=== PATIENT | female | born 1930 | race Caucasian/White ===

== ENCOUNTER → 2016-12-30 | Outpatient (CLI) | payer OTHER ==
--- NOTE | 2016-12-30 14:11 | KCIC ---
LUMBAR SPINE 2-3V History: Chronic low back pain without sciatica Comparison: None. Findings: 3 views lumbar spine are submitted. There is moderate to severe lumbar levoscoliosis. Lumbar vertebral body stature is overall maintained. There is mild left lateral subluxation of L3 relative L4 and L4 relative L5 and mild right lateral subluxation L1 relative to L2. There is multilevel variable advanced degenerative disc disease greatest at site of anticipated increased axial weightbearing due to scoliosis. There is scattered atherosclerotic calcification of the abdominal aorta. There is multilevel lumbar facet degenerative change greater inferiorly of the lumbar spine. There is bone demineralization. Impression: 1. There is moderate to severe lumbar levoscoliosis. There is multilevel degenerative disc disease and spondylosis, mild abnormal lateral alignment as stated. There is multilevel lumbar facet degenerative change. Electronically signed by: Kelechi Boyle MD (12/30/2016 2:08 PM) [facility]
== END | disposition home or self-care (01) ==
LOC: KCIC 13:39
PROVIDERS: ATTEND Internal Medicine
DX: G89.29 Other chronic pain (principal); M51.36 Other intervertebral disc degeneration, lumbar region
CPT/HCPCS: 72100

== ENCOUNTER → 2017-01-16 | Outpatient (CLI) | payer OTHER ==
[~2017-01-16] MED LIST: PRIM250T PO; SIMV40TA3 PO; VIT1TABL32 PO
--- NOTE | 2017-01-17 00:10 | PAIN ---
DATE OF SERVICE: 01/16/2017 INITIAL CONSULTATION FOR PAIN CLINIC CHIEF COMPLAINT: Low back and bilateral lower extremity pain. HISTORY OF PRESENT ILLNESS: This is an 86-year-old female with history of pain in the low back and bilateral lower extremities, mostly in the posterior gluteus, posterolateral thigh, lateral anterior thigh and medial lower legs as well as the posterior lower legs, for about 10 years. The patient reports this is gradually getting worse, but it comes and goes, is not persistent and radiates into the legs. It is usually when she is walking or standing. 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 The patient reports that the pain becomes much worse with standing, even more than about 15-20 minutes ____ about 10 minutes where she needs to sit down, which the pain tends to subside after several minutes. When she sits for about 10 minutes or so, the pain is better. She gets up and walks, and it all starts to go over again. The patient reports it is hurting and aching with some radiating pain in her lower extremities as described in the L4 and L5 dermatomal pattern into the lateral anterior thighs, medial thighs, posterior gluteus, posterior lower legs and medial lower legs as well, again worse in the low back but with radiating pain intermittently. The patient reports it does not awaken her from sleep at night. She feels much better with sitting or lying down. She is not having bowel or bladder control issues from the pain, but it does affect her ability to walk significantly. Again, after about 10-15 minutes of walking or standing, the pain becomes unbearable and radiating. The patient did have lumbar spine films showing [id number] lumbar levoscoliosis with lumbar vertebral body, mild left lateral subluxation of L3 relative to L4 and L4 relative to L5, mild right lateral subluxation at L1 relative to L2, multilevel advanced degenerative disk disease, greatest at the site of increased axial weightbearing due to scoliosis. There is scattered atherosclerotic calcification of the abdominal aorta as well as multilevel lumbar facet degenerative change, greater inferiorly also. The patient reports disability rating from 0 to 10, 10 being the worst, is at 1 with family and home responsibilities and at 0 with recreation, social activity, occupation, self-care and life support activities as she reports she "just gets by" with the pain. The patient has not had any further treatments such as physical therapy. She is doing some exercise on her own, stretching every day about twice a day, usually in the morning and evenings but no chiropractic treatment and no formal therapies otherwise. PAST MEDICAL HISTORY: Significant for hearing loss with hearing aids, cataracts, eye glasses and macular degeneration. The patient is a previous cigarette smoker, quit many years ago and has history of arthritis and seizure, last in 1982. PREVIOUS SURGERIES: Include melanoma excision on the back at age 42, hysterectomy and appendectomy at age 49, left knee scope x 2, bunionectomies bilaterally and cataract extractions as well at about age 82. CURRENT MEDICATIONS: Include primidone and simvastatin. The patient also taking anti-inflammatories, Motrin and Tylenol and recently prescribed tramadol, which she has not filled yet, she reports. SOCIAL HISTORY: She has not quit smoking. She smokes for 69 years and smokes less than a pack a day. The patient is retired and lives in a residential community. Reports she is not very active, does not get out and do much. FAMILY HISTORY: Significant for high blood pressure. ALLERGIES: The patient has no known drug allergies. PHYSICAL EXAMINATION: VITAL SIGNS: Today, the patient's blood pressure is 130/60, pulse 62, respirations 18, temperature 98.1 degrees Fahrenheit. Height is 5 feet. Weight is 125 pounds. GENERAL: The patient is awake, alert, oriented, appropriate, very pleasant demeanor. HEENT: Head shows normocephalic and atraumatic. Extraocular movements intact and symmetrical. Oral cavity: Mucous membranes are moist and pink. Dentition is intact. NECK: Shows anterior throat supple without palpable lymphadenopathy noted. Swallow reflex is symmetrical. CHEST: Shows normal on inspection. Breath sounds are clear to auscultation bilaterally, no rales, rhonchi or wheezes auscultated. HEART: Shows S1 and S2 clear. No murmurs auscultated. ABDOMEN: Soft, nontender, nondistended. No palpable organomegaly noted. No rebound or guarding demonstrated. BACK: Shows spine grossly midline. Normal-appearing cervical lordotic curvature, thoracic kyphotic curvature and lumbar lordotic curvature. Lumbar paraspinous musculature shows symmetrical on inspection. No previous bruises, lesions, rashes or scars noted throughout the spine. With palpation, the lumbar paraspinous musculature shows some moderate tenderness diffusely in the bilateral inferior aspect of the lumbar paraspinous muscles but only diffusely without radiation, without asymmetry. No trigger points, no abnormalities, no tenderness over the spinous processes, sacrum or sacroiliac regions. The patient has good rotational motion both laterally as well as extension and forward flexion without pain reported. EXTREMITIES: The patient's lower extremities show deep tendon reflexes at 2+ in the patellar and 1+ in tendo calcaneus tendons and are equal. Motor exam is approximately 4 on a scale of 5 but equal and symmetrical with dorsiflexion, extension, quadriceps and hamstring flexion. Peripheral pulses are 1+ posterior tibial and dorsalis pedis pulses. No peripheral edema is noted. No clubbing, no cyanosis. Lower extremities are warm and dry to touch, equal in color and appearance. Straight leg raise noted to be positive bilaterally about 40-45 degrees, which is decreased with knee flexion. Gaenslen's and Ollie's maneuvers are grossly negative bilaterally. The patient is able to stand and has slight difficulty standing on her toes as she loses balance easily, but she is not using any assistive devices to ambulate such as canes or walkers and has a slight shuffling gait but does not appear to favor the right or left lower extremity significantly for short walk in the office today. IMPRESSION: This is an 86-year-old female with: 1. About 10-year history of low back pain radiating to bilateral lower extremities in L4 and L5 dermatomal pattern and a radicular pattern again intermittently with chronic low back pain. 2. Lumbar spine films as noted. 3. Cigarette smoking. 4. Arthritis. 5. Macular degeneration. PLAN: Options were discussed with the patient including conservative medical management, physical therapies and interventional techniques. She would like to pursue interventional techniques as she is doing some exercises on her own without significant improvement. We discussed a lumbar epidural steroid injection using description as well as anatomical models to describe the procedure. The patient will wait for preauthorization with her insurance provider. We will try Medrol Dosepak in the meantime. The patient was given instructions as well as side effects to be aware of with medication and was encouraged to keep with her exercise routine and keep stretching and increase activity as tolerated. She will return to clinic. We will plan on lumbar epidural steroid injection at that time. RAQUEL RIVERA MD DR: FERNANDA/arjun JOB#: [id number] / [id number] BRYAN Santana MD
== END | disposition home or self-care (01) ==
LOC: PNCL 10:10
PROVIDERS: ATTEND Anesthesiology
DX: M54.5 Low back pain (principal); G89.29 Other chronic pain; H35.30 Unspecified macular degeneration; F17.210 Nicotine dependence, cigarettes, uncomplicated
CPT/HCPCS: G0463

== ENCOUNTER → 2017-01-30 | Outpatient (CLI) | payer OTHER ==
[~2017-01-30] MED LIST changes: +IOHEXOL 180 MG/ML 10 ML VIAL. ONE; +methylPREDNISolone ACETATE 40 MG/ML VIAL. ONE; +methylPREDNISolone ACETATE 80 MG/ML VIAL. ONE
--- NOTE | 2017-01-30 11:42 | PN ---
DATE: 01/30/2017 PROGRESS NOTE FOR PAIN CLINIC DIAGNOSES: Lumbar radiculopathy with lumbar degenerative disk disease and lumbar spinal stenosis with neurogenic claudication. HISTORY OF PRESENT ILLNESS: The patient is an 86-year-old female who returns for followup status post initial evaluation and preauthorization for lumbar epidural steroid injection. The patient has obtained this. She reports still significant pain in the low back and bilateral lower extremities, without significant change after Medrol Dosepak. The patient still reports aching, burning, cramping and shooting pain that is dull, alternating with sharp and can become more constant. The patient reports a 9 on a scale of 10 at its worst, it is average at about 9 and is currently a 5 on a scale of 10. The patient reports it awakens her from sleep. She sleeps fairly well, about 10-12 hours most nights and she does awaken, but she can reposition and get back to sleep without difficulty. The patient reports no new motor or sensory deficits. No new bowel or bladder incontinence or other complaints. PHYSICAL EXAMINATION: VITAL SIGNS: The patient's blood pressure is 139/55, pulse 67, respirations are 20 and temperature is 97.9 degrees Fahrenheit. Weight is 126 pounds. GENERAL: The patient is awake, alert, oriented, appropriate, has a very pleasant demeanor. HEENT EXAMINATION: Head shows normocephalic, atraumatic. Extraocular movements intact and symmetrical. Oral cavity, mucous membranes moist and pink. Dentition is intact. NECK: Shows anterior throat supple, without palpable lymphadenopathy noted. Swallow reflex is symmetrical. CHEST: Shows normal on inspection. Breath sounds are clear to auscultation bilaterally. HEART: Shows S1, S2 clear. ABDOMEN: Soft, nontender and nondistended. No palpable organomegaly is noted. No rebound or guarding demonstrated. BACK: Shows spine grossly in the midline. Lumbar paraspinous musculature is symmetrical on inspection. On palpation, it shows some moderate tenderness with palpation in the lower lumbar distribution bilaterally, only diffusely, however, in the paraspinous muscles without radiation. No tenderness over the sacrum or sacroiliac regions. EXTREMITIES: Lower extremities show deep tendon reflexes at 2+ in the patellar, 1+ tendo-calcaneus tendons are equal. Motor exam is approximately 4 on a scale of 5, but equal with dorsiflexion, extension and are symmetrical bilaterally. Options were discussed with the patient. The patient's old chart was reviewed as her current medication regimen updated. Current review of systems updated today as well, and we will proceed with a lumbar epidural steroid injection today with fluoroscopic guidance. Risks were again discussed including, but not limited to bleeding, infection, possibility of epidural hematoma and subsequent neurological compromise, dural punctures, headaches, spinal cord and/or nerve damage, side effects of steroid medication and poor results regarding pain control. The patient understands and wishes to proceed. The patient will return to the clinic in approximately 2 weeks for followup. She was counseled to return appointment, activity level and side effects to be aware of. DIAGNOSES: Lumbar radiculopathy with lumbar spinal stenosis and neurogenic claudication with degenerative disk disease. PROCEDURE: Lumbar epidural steroid injection in translaminar approach at the L4-L5 level using C-arm fluoroscopic guidance under sterile prep and drape and using local anesthetic. MEDICATION INJECTED: A total of 120 mg Depo-Medrol plus 10 mL of preservative-free normal saline and 2 mL of Isovue for contrast. CONDITION AT DISCHARGE: Stable. The patient tolerated the procedure well, had no complications. RAQUEL RIVERA MD DR: FERNANDA/arjun JOB#: [id number] / [id number]
== END | disposition home or self-care (01) ==
LOC: PNCL 10:00
PROVIDERS: ATTEND Anesthesiology
DX: M51.16 Intervertebral disc disorders with radiculopathy, lumbar region (principal)
CPT/HCPCS: 62323; J1030; J1040

== ENCOUNTER → 2017-02-13 | Outpatient (CLI) | payer OTHER ==
[~2017-02-13] MED LIST changes: -IOHEXOL 180 MG/ML 10 ML VIAL. ONE; -methylPREDNISolone ACETATE 40 MG/ML VIAL. ONE; -methylPREDNISolone ACETATE 80 MG/ML VIAL. ONE
--- NOTE | 2017-02-13 11:54 | PAIN ---
DATE OF SERVICE: 02/13/2017 DIAGNOSES: Lumbar radiculopathy with lumbar degenerative disk disease, spinal stenosis with neurogenic claudication. HISTORY OF PRESENT ILLNESS: The patient is an 86-year-old female who returns for followup status post lumbar epidural steroid injection x 1. The patient reports 75% improvement in the low back, bilateral lower extremity pain. The patient reports the pain is coming back, but only staying in her low back at this time with very infrequent radiation to lower extremities, but is still there, present bilaterally. The patient reports it is 6 on a scale of 10 at its worse, 3 on average, and a 2 on a scale of 10 at least and is a 2 today. The patient reports it as aching and dull without as much radiation now, sleeping better at night about 8-9 hours, does not awaken her from sleep. The patient has been increasing her activities with greater ease and comfort and is very pleased with her progress. The patient reports no new motor or sensory deficits. No new bowel or bladder incontinence or other complaints, but still has some radiating pain occasionally within the L4-L5 dermatome, but again much improved from previously. The patient reports the pain is staying about 75% improvement, has been that way for about 2-1/2 weeks now. PHYSICAL EXAMINATION: VITAL SIGNS: The patient's blood pressure is 142/65, pulse 64, respirations are 20, temperature 98.2 degrees Fahrenheit, weight is 128 pounds. GENERAL: The patient is awake, alert, oriented, appropriate, very pleasant demeanor. HEENT: Shows normocephalic, atraumatic. Extraocular movements are intact and symmetrical. Oral cavity shows mucous membranes moist and pink. Dentition is intact. NECK: Shows anterior throat supple without palpable lymphadenopathy noted. Swallow reflex is symmetrical. CHEST: Shows normal on inspection. Breath sounds are clear to auscultation bilaterally. HEART: Shows S1 and S2 clear. ABDOMEN: Soft, nontender, nondistended. No palpable organomegaly is noted. No rebound or guarding demonstrated. BACK: Shows spine grossly in midline with a slight exaggeration of thoracic kyphosis, mild flattening of lumbar lordotic curvature. Lumbar paraspinous muscle shows symmetrical on inspection, with palpation shows some moderate tenderness, but only diffusely in the lower lumbar distribution. Full rotation both laterally as well as extension and flexion without exacerbation of pain in the lumbar spine. LOWER EXTREMITIES: Show deep tendon reflexes 2+ in the patellar, 1+ tendo-calcaneus tendons, are equal. Motor exam is approximately 4 on a scale of 5, but is symmetrical with dorsiflexion, extension, quadriceps and hamstring flexion. Straight leg raise is noted to be negative bilaterally. Gaenslen and Ollie maneuvers are negative as well. Options were discussed with the patient, and the patient's old chart was reviewed as her current medication regimen and updated. Current review of systems updated today as well. We will proceed with a preauthorization for a second lumbar epidural steroid injection as she is 75% better, having some return of pain now and will see if we can get ahead of this to prevent this from progressing. The patient will continue doing stretching and strengthening exercises, keep walking every day as instructed and as tolerated and will return for a lumbar epidural steroid injection #2 in about 1 week. RAQUEL RIVERA MD DR: FERNANDA/arjun JOB#: [id number] / [id number]
== END | disposition home or self-care (01) ==
LOC: PNCL 10:06
PROVIDERS: ATTEND Anesthesiology
DX: M51.16 Intervertebral disc disorders with radiculopathy, lumbar region (principal); M48.062 Spinal stenosis, lumbar region with neurogenic claudication
CPT/HCPCS: G0463

== ENCOUNTER → 2017-03-13 | Outpatient (CLI) | payer OTHER ==
--- NOTE | 2017-03-13 12:12 | PAIN ---
DATE OF SERVICE: 03/13/2017 DIAGNOSES: Lumbar radiculopathy with lumbar degenerative disk disease, lumbar spinal stenosis with neurogenic claudication. HISTORY OF PRESENT ILLNESS: This is an 86-year-old female who returns for followup status post lumbar epidural steroid injections x 2. The patient reports about 75% improvement overall with slight increase in pain, about 60% improvement level over the last few days. The patient reports pain is across the low back, with radiation to bilateral lower extremities, essentially right equal to left in the posterior gluteus, posterolateral thigh, lateral anterior thigh, anterior medial lower legs, again intermittently in the legs, but across the back fairly consistently. The patient reports it is a sharp, aching, can be tight and cramping with some radiating pain, somewhat stabbing, but less severe than it was and is off and on in nature, worse with walking and standing, change in positions, better with sitting down or resting or lying down. The patient reports it does not awaken her from sleep. She sleeps 7-8 hours a night, but without any difficulty from the pain waking her up. The patient reports no new motor or sensory deficits, no new bowel or bladder incontinence or other complaints. PHYSICAL EXAMINATION: VITAL SIGNS: The patient's blood pressure shows 137/66, pulse 59, respirations 16, temperature 97.9 degrees Fahrenheit, height 5 feet 0 inches. Weight is 138 pounds. The patient rates her pain today as a 5 on a scale of 10. GENERAL: The patient is awake, alert, oriented, appropriate, very pleasant demeanor. HEENT: Head shows normocephalic, atraumatic. Extraocular movements are intact and symmetrical. Oral cavity shows mucous membranes moist and pink. Dentition is intact. NECK: Shows anterior throat supple without palpable lymphadenopathy noted. Swallow reflex is symmetrical. CHEST: Shows normal on inspection, shows breath sounds clear to auscultation bilaterally. HEART: Shows S1 and S2 clear. No murmurs auscultated. ABDOMEN: Soft, nontender, nondistended. No palpable organomegaly, no rebound or guarding demonstrated. BACK: The patient's back shows spine grossly in the midline, with some slight exaggeration of thoracic kyphosis and some mild flattening of lumbar lordotic curvature. Lumbar paraspinous musculature shows symmetrical on inspection and on palpation shows some [id number] tenderness bilaterally, but only diffusely in the lower lumbar distribution, slightly more tender in the upper distribution, but without radiation, without trigger points and actually shows good rotational motion both laterally as well as extension and flexion without pain reported. EXTREMITIES: Lower extremities show deep tendon reflexes 2+ in the patellar tendons, 1+ tendocalcaneus tendons. Motor exam is approximately 4 on a scale of 5, but equal and symmetrical in the lower extremities bilaterally. Peripheral pulses are 1+ posterior tibial and dorsalis pedis pulses. No peripheral edema is noted bilaterally as well. Options were discussed with the patient, and the patient's old chart was reviewed as her current medication regimen updated. Current review of systems updated today as well. We will preauthorize the patient for a third lumbar epidural steroid injection. She still has some radicular pain at L4-L5 dermatomal distribution bilaterally, but significantly improved by about 75% overall. The patient will return, and we will plan on third lumbar epidural steroid injection at that time. The patient will continue with increasing her activity as tolerated and exercising, doing stretching and strengthening at home as well. RAQUEL RIVERA MD DR: FERNANDA/arjun JOB#: [id number] / [id number]
== END | disposition home or self-care (01) ==
LOC: PNCL 08:57
PROVIDERS: ATTEND Anesthesiology
DX: M51.16 Intervertebral disc disorders with radiculopathy, lumbar region (principal); M48.062 Spinal stenosis, lumbar region with neurogenic claudication
CPT/HCPCS: G0463

== ENCOUNTER → 2019-05-23 | Outpatient (CLI) | payer MEDICARE ==
[~2019-05-23] MED LIST changes: +SIMV40TA18 PO; -SIMV40TA3 PO
--- NOTE | 2019-05-23 15:50 | RAD ---
Examination: CT HEAD WO CONTRAST History: Fall, head injury Comparison/Correlation: None Findings: Axial images of the head were obtained without contrast. Left supraorbital subgaleal hematoma measuring 5.4 cm transverse by 1.2 cm anteroposterior is present. Atrophy is present. Mild chronic ischemic changes are noted. No intracranial hemorrhage, midline shift, or mass effect. Cavernous carotid calcification is present. No depressed fracture. The visualized orbits are unremarkable. Impression: Left supraorbital subgaleal hematoma. No intracranial hemorrhage. PQRS Compliance Statement: One or more of the following individualized dose reduction techniques were utilized for this examination: 1. Automated exposure control 2. Adjustment of the mA and/or kV according to patient size 3. Use of iterative reconstruction technique Electronically signed by: Taiwo Hyde MD (05/23/2019 3:48 PM) [facility]
== END | disposition home or self-care (01) ==
LOC: CT 14:38
PROVIDERS: ATTEND Family Medicine
DX: S05.12XA Contusion of eyeball and orbital tissues, left eye, initial encounter (principal); W19.XXXA Unspecified fall, initial encounter; Y93.89 Activity, other specified; Y92.89 Other specified places as the place of occurrence of the external cause; Y99.8 Other external cause status
CPT/HCPCS: 70450

== ENCOUNTER → 2019-10-22 | Outpatient (CLI) | payer MEDICARE ==
--- NOTE | 2019-10-22 17:37 | RAD ---
DATE: 10/22/2019 9:51 AM EXAM: DIGITAL DIAGNOSTIC BILATERAL, complaint BREAST ultrasound RIGHT HISTORY: 89-year-old woman presents with approximately 2 weeks of right breast pain and tenderness and nipple discharge. COMPARISON: None. This will serve as a new baseline. Her last mammogram was over 10 years ago. TECHNIQUE: Bilateral CC and MLO views of the breasts were performed. Bilateral breast tomosynthesis was performed in CC and MLO projections. Bilateral ML views were also obtained. This study was interpreted with the benefit of Computerized Aided Detection (CAD). Complete ultrasound of the right breast was then performed, including the breast parenchyma circumferentially as well as ultrasound of the subareolar right breast and of the right axilla. A standoff pad was utilized. FINDINGS: Breast Density: HETERO The breast parenchyma Is heterogeneously dense, which could reduce sensitivity of mammography. Breast parenchyma level C No dominant mass, suspicious calcification or architectural distortion is identified in either breast with 2-D and 3-D technique. Since the patient was symptomatic in the right breast with nipple discharge, targeted ultrasound of the right breast was performed both in the subareolar region and circumferentially given her heterogeneously dense breast parenchyma. Ultrasound revealed dense breast tissue with no dominant mass and no axillary adenopathy. On clinical inspection, I noted asymmetric erythema and apparent ulceration of the right nipple. On direct questioning, patient reported that she had treated this area with multiple rounds of nonprescription topical antibiotics without lasting success. IMPRESSION: Suspicious ulceration and erythema to the right nipple with associated reported clear discharge and pain. Although clinical appearance is nonspecific and can be from infectious, inflammatory or neoplastic causes, malignancy should be ruled out with tissue sampling. Recommend surgical consult for consideration of biopsy of the nipple on the right. Discussed with patient. BI-RADS CATEGORY: 4 SUSPICIOUS ABNORMALITY- BIOPSY SHOULD BE CONSIDERED RECOMMENDED FOLLOW-UP: SURG SURGICAL CONSULTATION Appropriate clinical management thereafter is recommended. Patient's left breast is recommended for clinical follow-up and resumption of routine screening mammography at the discretion of the patient's referring physician after review of risks and benefits of further mammographic screening with the patient herself. PQRS compliance statement: Patient information was entered into a reminder system with a target due date 10/22/2020 for the next mammogram. Mammography is a sensitive method for finding small breast cancers, but it does not detect them all and is not a substitute for careful clinical examination. A negative mammogram does not negate a clinically suspicious finding and should not result in delay in biopsying a clinically suspicious abnormality. "Our facility is accredited by the [employer] Mammography Program."
== END | disposition home or self-care (01) ==
LOC: MAMMO 10:01
PROVIDERS: ATTEND Family Medicine
DX: R92.8 Other abnormal and inconclusive findings on diagnostic imaging of breast (principal)
CPT/HCPCS: 76641; 77066